=== PATIENT | female | born 1970 | race Caucasian/White ===

== ENCOUNTER → 2018-01-28 | Outpatient (CLI) | payer OTHER ==
[~2018-01-28] MED LIST: OMNIPAQUE 350 MG/ML, 150 ML BOTTLE ONE
[2018-01-28 14:25] LABS: CREATININE 0.76 mg/dL (0.55-1.02)
== END | disposition home or self-care (01) ==
LOC: RAD 13:42
PROVIDERS: ATTEND Surgery
DX: K76.0 Fatty (change of) liver, not elsewhere classified (principal); R16.0 Hepatomegaly, not elsewhere classified; N83.202 Unspecified ovarian cyst, left side; K63.2 Fistula of intestine
CPT/HCPCS: 36415; 74177; 82565; Q9967

== ENCOUNTER 2018-03-22 05:44 | Day surgery (SDC) | payer OTHER ==
[~2018-03-22] VITALS: Ht 152.4 cm; Wt 112.3 kg
[2018-03-22 06:19] VITALS: BP 125/72
[2018-03-22] MEDS ORDERED: OMEP20TA62 PO (06:26)
[2018-03-22] MEDS ORDERED: CETI10TA24 PO (06:26)
[2018-03-22] MEDS ORDERED: ESCI10TA10 PO (06:26)
[2018-03-22] MEDS ORDERED: AMPH30CA6 PO (06:26)
[2018-03-22] MEDS ORDERED: NAPR-856 PO (06:26)
[2018-03-22] MEDS ORDERED: METO50TA4 PO (06:26)
[2018-03-22] MEDS ORDERED: LEVO100T PO (06:26)
[2018-03-22] MEDS ORDERED: OXYC-307 PO (06:26)
[2018-03-22] MEDS ORDERED: LISI-167 PO (06:26)
[2018-03-22] MEDS ORDERED: LACTATED RINGERS 1,000 ML IV SCH (06:40)
[2018-03-22] MEDS ORDERED: CLON0.5T PO (06:42)
[2018-03-22] MEDS ORDERED: MIDAZOLAM 1 MG/ML, 2ML ONE (06:44)
[2018-03-22] MEDS ORDERED: FENTANYL PF 250 MCG/5ML ONE (06:45)
[2018-03-22] MEDS ORDERED: PROPOFOL 10 MG/ML, 20ML ONE (06:45)
[2018-03-22] MEDS ORDERED: DEXAMETHASONE 4 MG/ML, 1ML ONE ×2 (06:46)
[2018-03-22] MEDS ORDERED: ROCURONIUM 10MG/ML,5ML ONE (06:46)
[2018-03-22] MEDS ORDERED: ONDANSETRON 2MG/ML, 2ML ONE ×2 (06:46→08:54)
[2018-03-22] MEDS ORDERED: CEFAZOLIN 1,000 MG ONE ×2 (06:47)
[2018-03-22] MEDS ORDERED: WATER-INJECTION,STERILE 10 ML IV ONE (06:47)
[2018-03-22] MEDS ORDERED: ROPIvacaine/PF 0.2%, 20 ML ONE ×2 (06:50)
[2018-03-22] MEDS ORDERED: NEOSTIGMINE 1 MG/ML, 10ML ONE (06:51)
[2018-03-22] MEDS ORDERED: GLYCOPYRROLATE 0.4 MG/2 ML, 2ML ONE ×2 (06:51→08:15)
[2018-03-22] MEDS ORDERED: BUPIVACAINE/PF 0.5% ONE (06:53)
[2018-03-22] MEDS ORDERED: ACETAMINOPHEN 500 MG TABLET ONE (07:14)
[2018-03-22] MEDS ORDERED: ONDANSETRON ODT 8 MG PO PRN (07:30)
[2018-03-22] MEDS ORDERED: ONDANSETRON 2MG/ML, 2ML IV PRN (07:30)
[2018-03-22] MEDS ORDERED: ONDANSETRON ODT 8 MG PO ONE (07:30)
[2018-03-22] MEDS ORDERED: PROMETHAZINE 12.5 MG SUPP PR PRN (07:30)
[2018-03-22] MEDS ORDERED: HYDROmorphone 1 MG/ML, 1ML IV PRN (07:30)
[2018-03-22] MEDS ORDERED: LABETALOL 5MG/ML, 20ML IV PRN (07:30)
[2018-03-22] MEDS ORDERED: ACETAMINOPHEN 500 MG TABLET PO ONE (07:30)
[2018-03-22] MEDS ORDERED: PROMETHAZINE 25 MG/ML, 1ML IV PRN (07:30)
[2018-03-22] MEDS ORDERED: hydrALAzine 20 MG/ML, 1ML IV PRN (07:30)
[2018-03-22] MEDS ORDERED: MORPHINE SULFATE 4 MG/ML, 1ML IVPush PRN (07:30)
[2018-03-22] MEDS ORDERED: MEPERIDINE/PF 25MG/0.5ML IVPush PRN (07:30)
[2018-03-22] MEDS ORDERED: PROMETHAZINE 25 MG SUPP PR PRN (07:30)
[2018-03-22] MEDS ORDERED: GABAPENTIN 300 MG CAPSULE PO ONE (07:30)
[2018-03-22 07:35] LABS: ALBUMIN 3.4 g/dL (3.4-5.0); ANION GAP 6 mmol/L (5-15); CALCIUM 8.4 mg/dL (8.5-10.1); CHLORIDE 107 mmol/L (98-107)
[2018-03-22 07:39] LABS: ALANINE AMINOTRANSFERASE 66 U/L (12-78); ALKALINE PHOSPHATASE 78 U/L (45-117); BILIRUBIN,TOTAL 0.3 mg/dL (0.2-1.0); CREATININE 0.69 mg/dL (0.55-1.02); TOTAL PROTEIN 6.9 g/dL (6.4-8.2)
[2018-03-22] MEDS ORDERED: CEFOTETAN PMX 2GM/50ML 0 ML ONE (07:51)
[2018-03-22] MEDS ORDERED: CEFOTETAN PMX 2GM/50ML 50 ML ONE (07:51)
[2018-03-22] MEDS ORDERED: OXYcodone 5 MG/5 ML ORAL.SOL UDC ONE (08:54)
[2018-03-22] MEDS ORDERED: FENTANYL PF 100 MCG/2ML ONE (08:54)
[2018-03-22] MEDS: OXYcodone 5 MG/5 ML ORAL.SOL UDC PO PRN ×2 (08:57→10:04)
[2018-03-22] MEDS: FENTANYL PF 100 MCG/2ML IV PRN ×2 (08:59→09:12)
== END 2018-03-22 12:00 | disposition home or self-care (01) ==
LOC: OUT 05:44
PROVIDERS: ATTEND Surgery
DX: T81.4XXA Infection following a procedure, initial encounter (principal); I10 Essential (primary) hypertension; E03.9 Hypothyroidism, unspecified; G89.4 Chronic pain syndrome; Y83.8 Other surgical procedures as the cause of abnormal reaction of the patient, or of later complication, without mention of misadventure at the time of the procedure; Y92.89 Other specified places as the place of occurrence of the external cause; Z98.890 Other specified postprocedural states; Z88.8 Allergy status to other drugs, medicaments and biological substances; Z91.018 Allergy to other foods
CPT/HCPCS: 36415; 49320; 80053; 88305; J1100; J2250; J2405; J2704; J2710; J3010; J3490; J7120; Q0162; S0074; J0690; J2795